=== PATIENT | male | born 1975 | race American Indian/Alaskan Native ===

== ENCOUNTER 2018-05-31 09:23 | Emergency (ER) | payer OTHER ==
[~2018-05-31] VITALS: Ht 182.9 cm; Wt 88.0 kg
== END 2018-05-31 13:40 | disposition home or self-care (01) ==
LOC: ED 09:23
DX: S70.00XA Contusion of unspecified hip, initial encounter (principal); S30.0XXA Contusion of lower back and pelvis, initial encounter; W01.0XXA Fall on same level from slipping, tripping and stumbling without subsequent striking against object, initial encounter; Y92.149 Unspecified place in prison as the place of occurrence of the external cause; Y99.0 Civilian activity done for income or pay
CPT/HCPCS: 72100; 72170; 99283

== ENCOUNTER 2018-06-14 12:13 | Emergency (ER) | payer SELFPAY ==
[~2018-06-14] VITALS: Ht 182.9 cm; Wt 95.2 kg
[2018-06-14] MEDS ORDERED: CYCLOBENZAPRINE5 MG PO (12:28)
[2018-06-14] MEDS ORDERED: NAPROSYN500 MG PO (12:28)
== END 2018-06-14 12:36 | disposition home or self-care (01) ==
LOC: ED 12:13
DX: S39.012A Strain of muscle, fascia and tendon of lower back, initial encounter (principal); X58.XXXA Exposure to other specified factors, initial encounter
CPT/HCPCS: 99283

== ENCOUNTER 2023-11-10 16:58 | Observation (INO) | payer OTHER ==
[~2023-11-10] VITALS: Ht 182.9 cm; Wt 113.0 kg
[~2023-11-10 16:58] MED LIST: CYCLOBENZAPRINE5 MG PO; NAPROSYN500 MG PO
--- OUTSIDE RECORDS SUMMARY | 2023-11-10 17:00 | XMS ---
PreManage Notification: MONICA RODRIGUEZ Security Mba Internship Events No recent Security Events currently on file CRITERIA MET - Group Notification CARE PROVIDERS There are no care providers on record at this time. [facility] has no Care Guidelines for this patient. Erika VISIT COUNT (12 MO.) 2 [facility] TOTAL 2 NOTE: Visits indicate total known visits. ED/C VISIT TRACKING (12 MO.) 11/10/2023 16:58 [facility] [place] TYPE: Emergency COMPLAINT: - BODY ACHES 10/07/2023 01:48 [facility] [place] TYPE: Emergency DIAGNOSES: - Allergy status to analgesic agent - Other psychoactive substance dependence with intoxication delirium - Other stimulant abuse with intoxication, unspecified - Unspecified convulsions INPATIENT VISIT TRACKING (12 MO.) No inpatient visits to display in this time frame [id number]
[2023-11-10 17:26] LABS: BASOPHILS 0.2 % (0-2); EOSINOPHILS 0.1 % (0-6); HEMATOCRIT 43.4 % (35.0-50.0); HEMOGLOBIN 14.4 g/dL (12.0-18.0); LYMPHOCYTES 3.9 % (24-44); MCH 30.2 (27-36); MCHC 33.3 g/dl (30-36); MCV 90.7 fl (81-99); MONOCYTES 7.6 % (0-12); NEUTROPHILS 88.2 % (39-80); PLATELET COUNT 187 K/uL (140-440); RBC 4.78 M/ul (4.3-5.7); RDW 13.6 (10.5-15.0)
[2023-11-10 17:35] LABS: ALBUMIN/GLOBULIN RATIO 0.91 (1.1-2.4); ALCOHOL, MEDICAL <3 ng/dL (<3); ALKALINE PHOSPHATASE 78 U/L (46-116); ALT (SGPT) 41 U/L (14-59); ANION GAP 26.9 (7-21); AST (SGOT) 127 U/L (15-37); BUN/CREATININE RATIO 15.68 (6.0-28.6); CALCIUM 9.2 mg/dL (8.5-10.1); CARBON DIOXIDE 16 mmol/L (21-32); CHLORIDE 101 mmol/L (98-107); CREATININE, SERUM 1.53 mg/dL (0.70-1.30); GLOMERULAR FILTRATION RATE,EST 56 mL/min (>60); POTASSIUM 3.9 mmol/L (3.5-5.1); PROTEIN, TOTAL 8.4 g/dL (6.4-8.2); UREA NITROGEN 24 mg/dL (7-18)
[2023-11-10 19:27] LABS: BILIRUBIN, URINE POSITIVE (negative); BLOOD/HGB, URINE NEGATIVE (Negative); KETONE, URINE >=80 (Negative); LEUK ESTERASE, URINE NEGATIVE (negative); NITRITE, URINE NEGATIVE (negative)
[2023-11-10 19:36] LABS: AMPHETAMINES, URINE POSITIVE (NEGATIVE); BARBITURATES, URINE NEGATIVE (NEGATIVE); BENZODIAZEPINE, URINE NEGATIVE (NEGATIVE); BUPRENORPHINE, URINE NEGATIVE (NEGATIVE); CANNABINOID, URINE NEGATIVE (NEGATIVE); COCAINE, URINE NEGATIVE (NEGATIVE); ECSTASY, URINE NEGATIVE (NEGATIVE); FENTANYL, URINE NEGATIVE (NEGATIVE); METHADONE, URINE NEGATIVE (NEGATIVE); OPIATES, URINE NEGATIVE (NEGATIVE); OXYCODONE, URINE NEGATIVE (NEGATIVE); PHENCYCLIDINE, URINE NEGATIVE (NEGATIVE)
--- NOTE | 2023-11-10 20:00 | NUR ---
PATIENT ARRIVED TO UNIT WITH TWO E.D. RN'S, PATIENT ALERT, WAS ABLE TO FOLLOW DIRECTIONS TO STAND AND TRANSFER TO HOSPITAL BED AFTER SEVERAL TIMES REPEATED, PATIENT IS COOPERATIVE WITH CARES, HE IS NOT CURRENTLY AGITATED ON ASSESSMENT, HE IS RASS OF 0 AT THIS TIME.
[2023-11-10 20:28] VITALS: BP 132/83
--- NOTE | 2023-11-10 20:45 | NUR ---
PATIENT RESTING IN BED EYES CLOSED RESPIRATIONS 22/MIN. PATIENT IS ALERT TO NAME, THEN BACK TO SLEEP. NOTED PATIENT DESATURATION TO 80% OXYGEN WHILE SLEEPING, PLACE 2L OXYGEN N.C. NOW AND NOTIFY CARLOS R.T., OXYGEN SATURATION 90-94% WITH 2L OXYGEN N.C., HE IS NOTED TO BE SNORING AND HAVING 1-2SEC. APNIC EPISODES.
--- NOTE | 2023-11-10 21:00 | NUR ---
UPDATED ON PATIENT PER TELEPHONE AT THIS TIME, INCLUDING BLOOD SUGAR OF 66 IN E.D. AND THEN 86 AT BEDSIDE ON ADMISSION. ORDERS CHANGED FROM LR TO D5LR. LUNCH BOX ARRIVED TO UNIT IN [place] FOR WHEN PATIENT WAKES.
--- NOTE | 2023-11-10 21:47 | NUR ---
IN TO DO HAS MED, [facility], [facility] CARE. PT GIVEN MORE ENSURE AND CHICKEN BROTH PER REQUEST. DENIES PAIN AT THIS TIME. DENIES SOB, ON 2L/O2 WITH SPO2 90%, RR 15.
[2023-11-10 21:57] VITALS: BP 106/56
[2023-11-10 22:02] VITALS: BP 123/60
--- NOTE | 2023-11-10 23:08 | NUR ---
PATIENT RESTING QUIETLY IN BED, SNORING NOTED. RESP RATE 21/MIN. PATIENT ALERT TO NAME. REMAINS ON 2L OXYGEN PER N.C. DUE TO APNIC EPISODES/DESATURATION.
--- NOTE | 2023-11-11 03:14 | NUR ---
PATIENT SITTING UP EATING SANDWICH BOX.
--- NOTE | 2023-11-11 03:45 | NUR ---
REPORT RECIEVED FROM MADELEINE CAO. pt ARRIVED TO FLOOR VIA HOSPITAL BED. pt MUMBLING TO SELF. VSS. ASSESSMENT DONE. pt SETTLED IN RM. pt DENIES ANY NEEDS AT THIS TIME CALL LIGHT WITHIN REACH.
[2023-11-11 03:52] VITALS: BP 123/79
[2023-11-11 05:20] VITALS: BP 120/62
[2023-11-11 05:38] LABS: BASOPHILS 0.6 % (0-2); EOSINOPHILS 1.5 % (0-6); HEMATOCRIT 37.8 % (35.0-50.0); HEMOGLOBIN 12.8 g/dL (12.0-18.0); LYMPHOCYTES 15.9 % (24-44); MCH 30.5 (27-36); MCHC 33.8 g/dl (30-36); MCV 90.4 fl (81-99); MONOCYTES 7.9 % (0-12); NEUTROPHILS 74.1 % (39-80); PLATELET COUNT 132 K/uL (140-440); RBC 4.18 M/ul (4.3-5.7); RDW 13.8 (10.5-15.0)
[2023-11-11 05:54] LABS: ANION GAP 14.2 (7-21); BUN/CREATININE RATIO 16.3 (6.0-28.6); CALCIUM 7.9 mg/dL (8.5-10.1); CREATININE, SERUM 0.92 mg/dL (0.70-1.30); MAGNESIUM 1.9 mg/dL (1.8-2.4); POTASSIUM 3.2 mmol/L (3.5-5.1)
--- NOTE | 2023-11-11 05:58 | NUR ---
pt IN BED RESTING. MUTTERING TO SELF. pt DENIES ANY NEEDS AT THIS TIME. CALL LIGHT WITHIN REACH.
--- NOTE | 2023-11-11 08:06 | NUR ---
Patient up in bathroom pacing while muttering to self. No acute distress. Patient encouraged to call if he has needs.
--- NOTE | 2023-11-11 09:16 | EKG ---
[facility] [address] [place], [place] [address] Signed Sinus tachycardia Otherwise normal ECG When compared with ECG of 10-NOV-2023 17:02, (Unconfirmed) fusion complexes are no longer present Confirmed by FARIDA JC MD ([id number]) on 11/11/2023 9:16:00 AM Electronically Signed By: FARIDA JC 11/11/23 0916 PATIENT NAME: MICHAELMONICA ROLLE Electrocardiogram DATE OF : 75 PHYSICIAN: FARIDA JC REPORT #: [id number] REPORT IS CONFIDENTIAL AND NOT TO BE RELEASED WITHOUT AUTHORIZATION
[2023-11-11 09:47] VITALS: BP 141/79
[2023-11-11 09:50] VITALS: BP 141/79
--- NOTE | 2023-11-11 11:44 | NUR ---
Patient up walking in room, no acute distress. Patient's IV remains patent, fluids infusing per provider order. Patient contiues to pace room and mutter to self. Call light within reach. Patient has his clothing hanging from IV pole, he reports he washed them and they "need to dry". Attempted to place clothing in bathroom, pt declined.
[2023-11-11 12:15] LABS: ANION GAP 14.8 (7-21); BUN/CREATININE RATIO 13.46 (6.0-28.6); CALCIUM 8.6 mg/dL (8.5-10.1); CREATININE, SERUM 1.04 mg/dL (0.70-1.30); POTASSIUM 3.8 mmol/L (3.5-5.1)
--- NOTE | 2023-11-11 13:02 | NUR ---
One time dose of ativan admin per provider order. Patient in bed, appears anxious, continues to self mutter. Patient denies needs at this time. Lunch in front of patient. IV site remains intact/patent, fluids infusing per provider order.
--- NOTE | 2023-11-11 15:40 | NUR ---
Patient sitting up in chair, no distress. Patient appears more calm, he appears to be reading the paper. IV remains patent/fluids infusing per provider order. Call light within reach.
--- NOTE | 2023-11-11 17:58 | NUR ---
Patient in the chair resting, eyes closed, respiration even and non labored. Patient's fluids infusing per provider order.
--- NOTE | 2023-11-11 18:12 | NUR ---
Dr. Meza states ok to check vital signs around 8pm as patient is finally sleeping.
--- NOTE | 2023-11-11 18:37 | NUR ---
Patient in chair resting, eyes closed, respirations even and non labored. Patient has no distress. IV site patent, fluids infusing per provider order.
[2023-11-11 20:52] VITALS: BP 134/82
[2023-11-11 20:58] VITALS: BP 134/82
--- NOTE | 2023-11-11 20:58 | NUR ---
WENT INTO PTS ROOM AND NOTED THAT PT WAS UP WATCHING AND PLEASURING HIMSELF SEXUALLY WHILE STANDING UP IN THE BATHROOM AND LOOKING AT SELF IN THE MIRROW. DID NOT STOPPED WHEN NURSE CAME IN. NOTED TO HAVE RED DRAINAGE R HAND. WENT AND GOT ANOTHER RN AND ASKED PT TO COME BACK TO BED , WHEN ASKED ABOUT HIS IV SITE HE SAID 'IT JUST FELL OUT", IV TIP INTACT FOUND IN THE BATHROOM. PT VOIDED AND HAD SMALL BM IN BR. C/O SCROTAL AND PENILE PAIN AND REDNESS/BURNING. INSTRUCTED ON MAYBE ITS IRRITATION FROM HIM PLEASURING SELF. CALM. COOPERATIVE WITH SL PLACEMENT. IV RESTARTED RW 20G STARTED BY MASON CAO. MEDICATED WITH ATIVAN 2MG IV. WILL NOTIFY MD ABOUT NOT RESTARTING IVF, PT IS INDEPENDENT INROOM AND NOT COMPLIANT. AND FOR SAFETY REASONS
--- NOTE | 2023-11-11 21:49 | NUR ---
DENIES C/O CHEST PAIN. NO RESPIRATORY OR S/SX DISTRESS, FLAT AFFECT. BEFORE THIS RN COULD COMPLETE HER ASSESSMENT HE STOOD UP, NOT SAYING ANYTHING, WALKED TO BRP AND STOOD IN FRONT OF MIRROW AND STARTED MASTURBATING AGAIN. PT INSTRUCTED NOT TO PULL IV OUT. NO ANSWER, WILL CONTIUES TO CHECK ON PT LATER. DR JC NOTIFIED OF ABOVE AND PREVIOUS INCIDENTS. STATED TO " OK TO STOP IVF AT THIS TIME, AND KEEP SL."
--- NOTE | 2023-11-11 23:48 | NUR ---
SITTING EDGE OF BED, COMBING HAIR. FLAT AFFECT, CALM. "YOSELIN OK' STATED. IV SL INTACT. FRESH WATER GIVEN.
--- NOTE | 2023-11-12 01:19 | NUR ---
PT IN BED, EYES CLOSED, NO DISTRESS.
--- NOTE | 2023-11-12 03:53 | NUR ---
Resting, turns and repositions self in bed. IV site RW intact
[2023-11-12 05:28] LABS: BASOPHILS 0.6 % (0-2); EOSINOPHILS 4.2 % (0-6); HEMATOCRIT 38.3 % (35.0-50.0); HEMOGLOBIN 12.7 g/dL (12.0-18.0); MCH 30.3 (27-36); MCHC 33.2 g/dl (30-36); MCV 91.3 fl (81-99); NEUTROPHILS 58.2 % (39-80); PLATELET COUNT 124 K/uL (140-440); RBC 4.19 M/ul (4.3-5.7); RDW 14.2 (10.5-15.0)
[2023-11-12 05:41] VITALS: BP 143/92
--- NOTE | 2023-11-12 05:49 | NUR ---
PT AWAKES EASILY, WAS COOP WITH LABS, ON ROOM AIR, SLURRED SPEECH. SL PATENT R W, REINFORCED TO PLEASE DONT TAKE IT OFF. WILL SE4T HIM OFF FOR A SHOWER. C/O UPPER SCROTAL/PENILE SHAFT DISCOMFORT AND REDNESS. PT HAS BEEN MASTURBATING OFF AND ON THE WHOLE SHIFT. INSTRUCTED TO COVER SELF WHICH HE DID. WAS COOPERATIVE WITH INSTRUCTIONS, VITALS AND ASSESSMENTS. PT TOOK OFF IV OFF EARLIER ON SHIFT, DR JC WAS NOTIFIED. PT RECEIVED ATIVAN 2MG PER INCREAED RESTLESSNESS, WAITING ON LABS THIS AM FOR POSSIBLE DC
[2023-11-12 06:00] LABS: ANION GAP 11.7 (7-21); BUN/CREATININE RATIO 9.87 (6.0-28.6); CREATININE, SERUM 0.81 mg/dL (0.70-1.30); POTASSIUM 3.7 mmol/L (3.5-5.1)
--- NOTE | 2023-11-12 07:39 | NUR ---
PT UP WALKING AROUND THE ROOM AT TIME OF SHIFT REPORT. ENCOURAGED TO SHOWER AND HAVE BREAKFAST BEFORE DC. DOUGLAS BULLOCK. DR JC IN EARLIER
--- NOTE | 2023-11-12 08:47 | NUR ---
DC INSTRUCTIONS PROVIDED, PT DENIES QUESTIONS. PT ENCOURAGED TO SHOWER AND DRESS FOR DC. RETURNING TO ROOM PT IS UNDRESSED SITTING IN THE CHAIR GOING THROUGH PERSONAL ITEMS. BREAKFAST SERVED.
--- NOTE | 2023-11-12 09:20 | NUR ---
PT HAS HAD 100% OF MORNING MEAL. PERSONAL ITEMS FROM [facility] RETURNED. PT ENCOURAGED TO GATHER BELONGING FOR DC. TAXI RIDE OFFERED. PT REMAINS UNCLOTHED RUMMAGEING THROUGH HIS PERSONAL ITEMS.
== END 2023-11-12 10:40 | disposition home or self-care (01) ==
LOC: ED 16:58 → CCU 16:59 → MS 11-11 03:44
PROVIDERS: Emergency Medicine; ADMIT Internal Medicine; ATTEND Internal Medicine
DX: M62.82 Rhabdomyolysis (principal); N17.9 Acute kidney failure, unspecified; R07.89 Other chest pain; E86.0 Dehydration
CPT/HCPCS: 36415; 80048; 80053; 80307; 81003; 82553; 83735; 84484; 85025; 93005; 93010; 94760; 96361; 96365; 96366; 96372; 96374; 96375; 96376; 99285-25; A9270; G0378; G0480; J1650; J2060; J3411; J7030; J7040; J7121

== ENCOUNTER 2024-03-05 13:16 | Emergency (ER) | payer OTHER ==
[~2024-03-05] VITALS: Ht 182.9 cm; Wt 90.9 kg
--- OUTSIDE RECORDS SUMMARY | 2024-03-05 13:18 | XMS ---
PreManage Notification: MONICA RODRIGUEZ Security Rough Rounder Events No recent Security Events currently on file CRITERIA MET - Group Notification CARE PROVIDERS There are no care providers on record at this time. [facility] has no Care Guidelines for this patient. Erika VISIT COUNT (12 MO.) 3 [facility] Arguello TOTAL 3 NOTE: Visits indicate total known visits. ED/C VISIT TRACKING (12 MO.) 03/05/2024 13:16 [facility] [place] TYPE: Emergency COMPLAINT: - WEAKNESS 11/10/2023 16:58 [facility] [place] TYPE: Emergency COMPLAINT: - BODY ACHES 10/07/2023 01:48 [facility] [place] TYPE: Emergency DIAGNOSES: - Allergy status to analgesic agent - Other psychoactive substance dependence with intoxication delirium - Other stimulant abuse with intoxication, unspecified - Unspecified convulsions INPATIENT VISIT TRACKING (12 MO.) 11/10/2023 16:59 [facility] [place] TYPE: Observation COMPLAINT: - RHABDOMYOLYSIS DIAGNOSES: - Acute kidney failure, unspecified - Dehydration - Other chest pain - Rhabdomyolysis [id number]
[2024-03-05 14:45] VITALS: BP 138/88
== END 2024-03-05 15:13 | disposition other institution, planned readmission (95) ==
LOC: ED 13:16
DX: T18.9XXA Foreign body of alimentary tract, part unspecified, initial encounter (principal); Z88.6 Allergy status to analgesic agent
CPT/HCPCS: 74022; 99283-25

== ENCOUNTER 2024-05-08 16:44 | Emergency (ER) | payer SELFPAY ==
[~2024-05-08] VITALS: Ht 182.9 cm; Wt 78.9 kg
--- OUTSIDE RECORDS SUMMARY | 2024-05-08 16:45 | XMS ---
PreManage Notification: MONICA RODRIGUEZ Security Optics Manufacturing Technician Events No recent Security Events currently on file CRITERIA MET - Group Notification CARE PROVIDERS There are no care providers on record at this time. [facility] has no Care Guidelines for this patient. Erika VISIT COUNT (12 MO.) 4 [facility] Arguello TOTAL 4 NOTE: Visits indicate total known visits. ED/C VISIT TRACKING (12 MO.) 05/08/2024 16:45 [facility] [place] TYPE: Emergency COMPLAINT: - WEAKNESS 03/05/2024 13:16 [facility] [place] TYPE: Emergency COMPLAINT: - WEAKNESS DIAGNOSES: - Allergy status to analgesic agent - Foreign body in mouth, initial encounter - Foreign body of alimentary tract, part unspecified, initial encounter - Imprisonment and other incarceration 11/10/2023 16:58 [facility] [place] TYPE: Emergency [...] Dehydration - Other chest pain - Rhabdomyolysis [id number]
[2024-05-08 16:58] LABS: BASOPHILS 0.5 % (0-2); EOSINOPHILS 4.8 % (0-6); HEMATOCRIT 38.6 % (35.0-50.0); HEMOGLOBIN 12.9 g/dL (12.0-18.0); LYMPHOCYTES 15.2 % (24-44); MCH 30.5 (27-36); MCHC 33.3 g/dl (30-36); MCV 91.5 fl (81-99); NEUTROPHILS 72.5 % (39-80); PLATELET COUNT 131 K/uL (140-440); RBC 4.22 M/ul (4.3-5.7); RDW 13.7 (10.5-15.0)
[2024-05-08 17:15] LABS: ALBUMIN 3.6 g/dL (3.4-5.0); ALBUMIN/GLOBULIN RATIO 1.03 (1.1-2.4); ALCOHOL, MEDICAL <3 ng/dL (<3); ALKALINE PHOSPHATASE 50 U/L (46-116); ALT (SGPT) 22 U/L (14-59); ANION GAP 11.2 (7-21); AST (SGOT) 31 U/L (15-37); BILIRUBIN, TOTAL 0.7 ng/dL (0.2-1.0); BUN/CREATININE RATIO 19.44 (6.0-28.6); CALCIUM 8.3 mg/dL (8.5-10.1); CARBON DIOXIDE 27 mmol/L (21-32); CHLORIDE 102 mmol/L (98-107); CREATININE, SERUM 1.08 mg/dL (0.70-1.30); GLOMERULAR FILTRATION RATE,EST 84 mL/min (>60); POTASSIUM 3.2 mmol/L (3.5-5.1); PROTEIN, TOTAL 7.1 g/dL (6.4-8.2); UREA NITROGEN 21 mg/dL (7-18)
[2024-05-08 19:40] LABS: BILIRUBIN, URINE POSITIVE (negative); BLOOD/HGB, URINE NEGATIVE (Negative); KETONE, URINE SMALL (Negative); LEUK ESTERASE, URINE NEGATIVE (negative); NITRITE, URINE NEGATIVE (negative)
[2024-05-08] MEDS ORDERED: POTASSIUM CHLORIDE 10 MEQ TABCR PO ONE (19:45)
[2024-05-08] MEDS ORDERED: FAMOTIDINE 20 MG/ 2 ML VIAL IV ONE (19:45)
[2024-05-08 19:53] LABS: AMPHETAMINES, URINE POSITIVE (NEGATIVE); BARBITURATES, URINE NEGATIVE (NEGATIVE); BENZODIAZEPINE, URINE NEGATIVE (NEGATIVE); BUPRENORPHINE, URINE NEGATIVE (NEGATIVE); CANNABINOID, URINE POSITIVE (NEGATIVE); COCAINE, URINE NEGATIVE (NEGATIVE); ECSTASY, URINE POSITIVE (NEGATIVE); FENTANYL, URINE POSITIVE (NEGATIVE); METHADONE, URINE NEGATIVE (NEGATIVE); OPIATES, URINE NEGATIVE (NEGATIVE); OXYCODONE, URINE NEGATIVE (NEGATIVE); PHENCYCLIDINE, URINE NEGATIVE (NEGATIVE)
[2024-05-08 20:45] VITALS: BP 122/80
--- NOTE | 2024-05-09 15:10 | EKG ---
[facility] [address] [place], [place] [address] Signed Normal sinus rhythm Normal ECG No previous ECGs available Confirmed by Edwin Aguilar ([id number]) on 05/09/2024 3:09:45 PM Electronically Signed By: EDWIN AGUILAR MD 05/09/24 1510 PATIENT NAME: MICHAELMONICA ROLLE Electrocardiogram DATE OF : 75 PHYSICIAN: EDWIN AGUILAR MD REPORT #: [id number] REPORT IS CONFIDENTIAL AND NOT TO BE RELEASED WITHOUT AUTHORIZATION
== END 2024-05-08 20:45 | disposition home or self-care (01) ==
LOC: ED 16:44
PROVIDERS: Emergency Medicine
DX: F15.90 Other stimulant use, unspecified, uncomplicated (principal); R07.89 Other chest pain; Z88.6 Allergy status to analgesic agent
CPT/HCPCS: 36415; 71045; 80053; 80307; 81003; 83735; 84484; 85025; 93005; 93010; A9270; G0480

== ENCOUNTER 2025-04-06 04:08 | Emergency (ER) | payer OTHER ==
[~2025-04-06] VITALS: Ht 182.9 cm; Wt 102.8 kg
--- OUTSIDE RECORDS SUMMARY | 2025-04-06 04:09 | XMS ---
PreManage Notification: MONICA RODRIGUEZ Security General Handling Supervisor Events No recent Security Events currently on file CRITERIA MET - Group Notification CARE PROVIDERS -, [facility]ist: Organizational Effectiveness Director Current [place] PHONE: [phone] [facility] has no Care Guidelines for this patient. [place] VISIT COUNT (12 MO.) 2 [facility]IL[facility] Arguello TOTAL 2 NOTE: Visits indicate total known visits. ED/UCC VISIT TRACKING (12 MO.) 2025 04:09 [facility] [place] TYPE: Emergency COMPLAINT: - ETOH 05/08/2024 16:45 [facility] [place] TYPE: Emergency COMPLAINT: - WEAKNESS DIAGNOSES: - Allergy status to analgesic agent - Other chest pain - Other stimulant use, unspecified, uncomplicated INPATIENT VISIT TRACKING (12 MO.) No inpatient visits to display in this time frame [id number]
[2025-04-06] MEDS ORDERED: NALOXONE HCL 2 MG/2 ML SYR IV ONE (04:15)
[2025-04-06 04:30] LABS: BASOPHILS 0.2 % (0.2-1.2); EOSINOPHILS 3.2 % (0.8-7.0); HEMATOCRIT 43.1 % (40.1-51.0); HEMOGLOBIN 14.3 g/dL (13.7-17.5); LYMPHOCYTES 17.3 % (21.8-53.1); MCH 30.4 PG (25.7-32.2); MCHC 33.2 g/dL (32.3-36.5); MCV 91.7 fL (79.0-92.2); MONOCYTES 5.3 % (5.3-12.2); NEUTROPHILS 73.7 % (34.0-67.9); PLATELET COUNT 125 K/uL (163-337)
[2025-04-06] MEDS ORDERED: SODIUM CHLORIDE 0.9% 1,000 ML IV SCH (04:30)
[2025-04-06 04:42] LABS: ALBUMIN 4.1 g/dL (3.4-5.0); ALBUMIN/GLOBULIN RATIO 1.03 (1.1-2.4); ANION GAP 17.9 (7-21); BILIRUBIN, TOTAL 0.4 mg/dL (0.2-1.0); BUN/CREATININE RATIO 15.84 (6.0-28.6); CALCIUM 8.4 mg/dL (8.5-10.1); CREATININE, SERUM 1.01 mg/dL (0.70-1.30); POTASSIUM 3.9 mmol/L (3.5-5.1); PROTEIN, TOTAL 8.1 g/dL (6.4-8.2)
[2025-04-06] MEDS ORDERED: LIDOCAINE 2% VISCOUS 6 ML SYR TOP ONE (05:15)
[2025-04-06 05:32] LABS: AMPHETAMINES, URINE POSITIVE (NEGATIVE); BARBITURATES, URINE NEGATIVE (NEGATIVE); BENZODIAZEPINE, URINE NEGATIVE (NEGATIVE); BUPRENORPHINE, URINE NEGATIVE (NEGATIVE); CANNABINOID, URINE NEGATIVE (NEGATIVE); COCAINE, URINE NEGATIVE (NEGATIVE); ECSTASY, URINE POSITIVE (NEGATIVE); FENTANYL, URINE NEGATIVE (NEGATIVE); METHADONE, URINE NEGATIVE (NEGATIVE); OPIATES, URINE NEGATIVE (NEGATIVE); OXYCODONE, URINE NEGATIVE (NEGATIVE); PHENCYCLIDINE, URINE NEGATIVE (NEGATIVE)
[2025-04-06 10:50] VITALS: BP 97/66
== END 2025-04-06 10:50 | disposition home or self-care (01) ==
LOC: ED 04:08
PROVIDERS: Emergency Medicine
DX: F10.129 Alcohol abuse with intoxication, unspecified (principal); Y90.8 Blood alcohol level of 240 mg/100 ml or more; Z88.8 Allergy status to other drugs, medicaments and biological substances
CPT/HCPCS: 36415; 51798; 80053; 80307; 85025; 99284-25; G0480; J7030

== ENCOUNTER 2025-09-29 12:09 | Emergency (ER) | payer OTHER ==
[~2025-09-29] VITALS: Ht 182.9 cm; Wt 90.0 kg
[2025-09-29] MEDS ORDERED: NALOXONE 4 MG NASAL SPRAY #2 HOME.PACK NAS ONE (14:30)
--- OUTSIDE RECORDS SUMMARY | 2025-09-29 14:32 | XMS ---
PreManage Notification: MONICA RODRIGUEZ Security Clay Maker Events No recent Security Events currently on file CRITERIA MET - Group Notification CARE PROVIDERS [employer] [employer] 08/06/2025-Current PHONE: [phone] -, [facility]ist: Human Service Coordinator Current [place] PHONE: [phone] [facility] Current FAMILY PHONE: [phone] [facility] has no Care Guidelines for this patient. E.D. VISIT COUNT (12 MO.) 2 H[facility]ILTON Arguello TOTAL 2 NOTE: Visits indicate total known visits. ED/UCC VISIT TRACKING (12 MO.) 09/29/2025 12:10 [facility] [place] TYPE: Emergency COMPLAINT: - OD 2025 04:09 [facility] [place] TYPE: Emergency COMPLAINT: - ETOH DIAGNOSES: - Alcohol abuse with intoxication, unspecified - Allergy status to other drugs, medicaments and biological substances - Blood alcohol level of 240 mg/100 ml or more - Transient alteration of awareness INPATIENT VISIT TRACKING (12 MO.) No inpatient visits to display in this time frame [id number]
[2025-09-29 14:40] VITALS: BP 124/83
== END 2025-09-29 14:40 | disposition home or self-care (01) ==
LOC: ED 12:09 → EDBD 12:10 → ED 12:10
DX: T40.601A Poisoning by unspecified narcotics, accidental (unintentional), initial encounter (principal)
CPT/HCPCS: 99284; J3490